=== PATIENT | female | born 1940 ===

== ENCOUNTER 2024-01-01 09:49 | Outpatient (CLI) | payer OTHER | END 2024-01-01 09:50 | disposition home or self-care (01) | LOC: SCSMRI 09:49 | PROVIDERS: ATTEND Nurse Practitioner Family | DX: S22.000G Wedge compression fracture of unspecified thoracic vertebra, subsequent encounter for fracture with delayed healing (principal); S32.000G Wedge compression fracture of unspecified lumbar vertebra, subsequent encounter for fracture with delayed healing; M48.04 Spinal stenosis, thoracic region; M48.061 Spinal stenosis, lumbar region without neurogenic claudication; M48.07 Spinal stenosis, lumbosacral region; Z87.81 Personal history of (healed) traumatic fracture | CPT/HCPCS: 72146; 72148 ==